=== PATIENT | male | born 2000 | race Caucasian/White ===

== ENCOUNTER 2025-05-31 15:41 | Emergency (ER) | payer MEDICAID ==
[~2025-05-31] VITALS: Ht 157.5 cm; Wt 77.1 kg
[2025-05-31] MEDS ORDERED: ONDANSETRON HCL/PF 4 MG/2 ML VIAL ONE (16:11)
[2025-05-31] MEDS: IV NS 0.9% 1,000 ML BAG IV ONE (16:17)
[2025-05-31] MEDS: ONDANSETRON HCL/PF - ER 4 MG/2 ML VIAL IV ONE ×2 (16:18→18:15)
[2025-05-31] MEDS: FAMOTIDINE/PF INJ 20 MG/2 ML VIAL IV ONE (16:18)
[2025-05-31 16:33] LABS: CALCIUM, SERUM 9.9 mg/dL (8.5-10.1); CREATININE 0.9 mg/dL (0.6-1.3); SODIUM SERUM 138.0 mmol/L (136-145); UREA NITROGEN, BLOOD 13.0 mg/dL (7-18)
[2025-05-31 16:37] LABS: ASPARTATE AMINOTRANSFERASE 23.0 U/L (15-37); TOTAL PROTEIN, SERUM 8.1 g/dL (6.4-8.2)
[2025-05-31 16:38] LABS: PLATELET COUNT (AUTO) 320 K/uL (150-450); RED BLOOD CELL COUNT(AUTO) 5.01 MIL/uL (4.5-6.0); RED CELL DISTRIBUTION WIDTH 13.2 % (11.5-15.0); WHITE BLOOD COUNT (AUTO) 10.8 K/uL (4.3-11.0)
[2025-05-31] MEDS: HALOPERIDOL LACTATE INJ 5 MG/ML VIAL IV ONE (16:40)
[2025-05-31] MEDS ORDERED: HALOPERIDOL LACTATE INJ 5 MG/ML VIAL ONE (17:28)
[2025-05-31] MEDS ORDERED: ONDA4TAB11 PO (18:46)
[2025-05-31] MEDS ORDERED: PANT40TA49 PO (18:46)
[2025-05-31 18:55] VITALS: BP 133/90; TEMP 98.8; O2SAT 98
== END 2025-05-31 18:56 | disposition home or self-care (01) ==
LOC: ER 15:44
DX: R11.2 Nausea with vomiting, unspecified (principal); R10.9 Unspecified abdominal pain; F17.200 Nicotine dependence, unspecified, uncomplicated; K52.9 Noninfective gastroenteritis and colitis, unspecified; Z79.899 Other long term (current) drug therapy
CPT/HCPCS: 99284; 96374; 96375; 96361; 93005; 85025; 80048; 82550; 83690; 80076; 36415; 82553; J1630; J1308; J2405; J7030